=== PATIENT | male | born 1970 | race Hispanic/Latino ===

== ENCOUNTER 2018-12-15 09:36 | Emergency (ER) | payer BC ==
[~2018-12-15] VITALS: Ht 162.6 cm; Wt 65.8 kg
--- OUTSIDE RECORDS SUMMARY | 2018-12-15 09:39 | XMS REPORT | Clinical Summary ---
Author Author [facility] Address Unknown Phone Unavailable Care Team Providers Care Aspnet Developer Name Role Phone Andrei Orellana PCP Allergies Comments Active Allergy Reactions Severity Noted Date Penicillins Hives 08/25/2017 Medications End Date Status Medication Sig Dispensed Refills Start Date Active tamsulosin (FLOMAX) 0.4 Take 1 15 capsule 0 mg Cp24 24 hr capsule capsule (0.4 8 mg total) by mouth daily. Active Problems Not on file Social History Date Tobacco Use Types Packs/Day Years Used Never Smoker Smokeless Tobacco: Never Used Alcohol Use Drinks/Week oz/Week Comments No Sex Assigned at Date Recorded Not on file Industry Job Start Date Occupation Not on file Not on file Not on file Travel End Travel History Travel Start No recent travel history available. Last Filed Vital Signs Not on file Plan of Treatment Not on file Results Not on fileafter 12/14/2017 Insurance Payer Benefit Subscriber ID Type Phone Address Plan / Group BLUE [employer] BCBS PPO xxxxxxxxxxxx PPO [phone] [address] [place] [address] CHOICE
--- OUTSIDE RECORDS SUMMARY | 2018-12-15 09:39 | XMS REPORT ---
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 Allergies, Adverse Reactions, Alerts This patient has no known allergies or adverse reactions. Medications This patient has no known medications. Results Test Description Test Time Test Comments Text Results Atomic Results Result Comments CT, ABDOMEN 2017-08-26 00:52:00 FINAL REPORT CLINICAL HISTORY: Acute abdominal pain FINDINGS: Multiple axial images of the abdomen and pelvis were performed without intravenous contrast. Oral contrast was not g iven. This exam was performed according to our departmental dose-optimization program, which includes automated exposure control, adjustment of the mA and/or kV according to patient size and/or use of the iterative reconstruction technique. Comparison:None. Lower chest: Clear lungs. No pleural effusion or pneumothorax. Visualized cardiac contours normal. Liver: No significant findings. Gallbladder and biliary tree: No significant findings. Spleen: No significant findings. Adrenal Glands: No significant findings. Kidneys and ureters: Punctate nonobstructing stone in the superior left kidney. No ureteral stone or CT evidence of obstructive uropathy. Stomach and Duodenum: No significant findings. Pancreas: No significant findings. Bowel: No significant findings. Appendix: Normal. Bladder: 4 mm stone in the dependent urinary bladder. Major vascular structures: No significant findings. Reproductive organs: No significant findings. Other: No free air, fluid or adenopathy Skeleton: No acute bony abnormality. IMPRESSION: 4 mm urinary bladder stone may reflect a recently passed kidney stone. There is no noncontrast CT evidence of obstructive uropathy. Punctate nonobstructing left kidney stone. Signed: [place] Young Verified Date/Time: 08/26/2017 00:52:05 Reading Location: [address] Reading Room C METABOLIC PANEL 2017-08-25 21:36:00 SODIUM (BEAKER) (test uwsl=101) 139 meq/L 136-145 POTASSIUM (BEAKER) (test fwem=120) 4.6 meq/L 3.5-5.1 CHLORIDE (BEAKER) (test ehuw=615) 108 meq/L 98-107 CO2 (BEAKER) (test ufpf=262) 23 meq/L 22-29 BLOOD UREA NITROGEN (BEAKER) (test fhdn=459) 11 mg/dL 7-21 CREATININE (BEAKER) (test obig=044) 0.83 mg/dL 0.57-1.25 GLUCOSE RANDOM (BEAKER) (test fzdw=105) 91 mg/dL 70-105 CALCIUM (BEAKER) (test amtv=650) 10.3 mg/dL 8.4-10.2 EGFR (BEAKER) (test mvqz=8051) mL/min/1.73 sq m INSUFFICIENT CLINICAL DATA TO CALCULATE ESTIMATED GFR. [id number] 21:33:00* Test Item Value Reference Range Comments PHOSPHORUS (BEAKER) (test ueef=271) 3.4 mg/dL 2.3-4.7 [id number] 21:33:00* Test Item Value Reference Range Comments MAGNESIUM (BEAKER) (test lvoj=930) 2.1 mg/dL 1.6-2.6 URINALYSIS W/ [id number] 21:22:00* Test Item Value Reference Range Comments COLOR (BEAKER) (test rpqq=743) Light Yellow CLARITY (BEAKER) (test mhzz=643) Clear SPECIFIC GRAVITY UA (BEAKER) (test zfwj=089) 1.006 1.001-1.035 PH UA (BEAKER) (test hfgx=296) 6.0 5.0-8.0 PROTEIN UA (BEAKER) (test hegb=314) Negative Negative GLUCOSE UA (BEAKER) (test qyhz=223) Negative Negative KETONES UA (BEAKER) (test jnfr=114) Negative Negative BILIRUBIN UA (BEAKER) (test yeyj=280) Negative Negative BLOOD UA (BEAKER) (test vrnl=197) Large Negative NITRITE UA (BEAKER) (test fosk=081) Negative Negative LEUKOCYTE ESTERASE UA (BEAKER) (test rhod=110) Negative Negative UROBILINOGEN UA (BEAKER) (test ptmm=053) 0.2 mg/dL 0.2-1.0 RBC UA (BEAKER) (test srzp=042) 169 /HPF WBC UA (BEAKER) (test jzxr=698) 10 /HPF BACTERIA (BEAKER) (test ihxl=168) Few MUCUS (BEAKER) (test mwti=7391) Occasional SOURCE(BEAKER) (test grmk=2358) Urine, Clean Catch CBC W/PLT COUNT & AUTO [id number] 20:51:00* Test Item Value Reference Range Comments WHITE BLOOD CELL COUNT (BEAKER) (test zbja=196) 8.8 K/ L 3.5-10.5 RED BLOOD CELL COUNT (BEAKER) (test uhyj=150) 4.72 M/ L 4.63-6.08 HEMOGLOBIN (BEAKER) (test pixf=829) 14.1 GM/DL 13.7-17.5 HEMATOCRIT (BEAKER) (test cgjb=482) 42.4 % 40.1-51.0 MEAN CORPUSCULAR VOLUME (BEAKER) (test zzlg=799) 89.8 fL 79.0-92.2 MEAN CORPUSCULAR HEMOGLOBIN (BEAKER) (test olpn=847) 29.9 pg 25.7-32.2 MEAN CORPUSCULAR HEMOGLOBIN CONC (BEAKER) (test fkrh=787) 33.3 GM/DL 32.3-36.5 RED CELL DISTRIBUTION WIDTH (BEAKER) (test qoks=673) 13.3 % 11.6-14.4 PLATELET COUNT (BEAKER) (test xixe=015) 198 K/CU MM 150-450 MEAN PLATELET VOLUME (BEAKER) (test mcvm=844) 11.2 fL 9.4-12.4 NUCLEATED RED BLOOD CELLS (BEAKER) (test yzqd=170) 0 /100 WBC 0-0 NEUTROPHILS RELATIVE PERCENT (BEAKER) (test injz=498) 62 % LYMPHOCYTES RELATIVE PERCENT (BEAKER) (test tdmr=021) 30 % MONOCYTES RELATIVE PERCENT (BEAKER) (test uzph=756) 8 % EOSINOPHILS RELATIVE PERCENT (BEAKER) (test guqu=956) 1 % BASOPHILS RELATIVE PERCENT (BEAKER) (test gner=896) 0 % NEUTROPHILS ABSOLUTE COUNT (BEAKER) (test otnt=982) 5.42 K/ L 1.78-5.38 LYMPHOCYTES ABSOLUTE COUNT (BEAKER) (test nrvi=921) 2.58 K/ L 1.32-3.57 MONOCYTES ABSOLUTE COUNT (BEAKER) (test bjkb=924) 0.66 K/ L 0.30-0.82 EOSINOPHILS ABSOLUTE COUNT (BEAKER) (test mnmj=643) 0.05 K/ L 0.04-0.54 BASOPHILS ABSOLUTE COUNT (BEAKER) (test ljcv=575) 0.02 K/ L 0.01-0.08 IMMATURE GRANULOCYTES-RELATIVE PERCENT (BEAKER) (test viil=8128) 0 % 0-1
[2018-12-15] MEDS ORDERED: SODIUM CHLORIDE 0.9% 1000ML 1,000 ML IV SCH ×2 (10:15)
[2018-12-15] MEDS ORDERED: KETOROLAC TROMETHAMINE 30 MG/ML VIAL IV ONE (10:30)
[2018-12-15] MEDS ORDERED: SODIUM CHLORIDE 0.9% 1000ML 1,000 ML IV ONE (10:30)
[2018-12-15] MEDS ORDERED: ONDANSETRON HCL INJ 2MG/ML 2ML 2 MG/ML VIAL IV ONE (10:30)
[2018-12-15 10:45] LABS: BASOPHILS % 0.3 % (0.0-1.0); EOSINOPHILS # (AUTO) 0.1 (0.0-0.4); EOSINOPHILS % 0.8 % (0.0-6.0); HEMATOCRIT 40.8 % (38.2-49.6); HEMOGLOBIN 13.8 g/dL (14.0-18.0); LYMPHOCYTES # (AUTO) 2.4 (1.0-3.2); LYMPHOCYTES % 37.7 % (18.0-39.1); MEAN CORPUSCULAR HEMOGLOBIN 29.7 pg (28-32); MEAN CORPUSCULAR HGB CONC 33.8 g/dL (31-35); MEAN CORPUSCULAR VOLUME 87.9 fL (81-99); MONOCYTES # (AUTO) 0.5 (0.2-0.8); MONOCYTES % 7.5 % (4.4-11.3); NEUTROPHILS # (AUTO) 3.4 (2.1-6.9); NEUTROPHILS % 53.4 % (38.7-80.0); PLATELET COUNT 204 x10e3/uL (140-360); RED BLOOD COUNT 4.64 x10e6/uL (4.3-5.7); RED CELL DISTRIBUTION WIDTH 13.7 % (11.7-14.4)
[2018-12-15 10:49] LABS: CLARITY,URINE CLOUDY (CLEAR); COLOR,URINE YELLOW (YELLOW)
[2018-12-15 10:49] LABS: ALANINE AMINOTRANSFERASE 22 IU/L (0-55); ALBUMIN 3.9 g/dL (3.5-5.0); ALKALINE PHOSPHATASE 94 IU/L (40-150); ANION GAP 13.6 mmol/L (8-16); BLOOD UREA NITROGEN 10 mg/dL (7-26); BUN/CREATININE RATIO 9 (6-25); CALCIUM 9.5 mg/dL (8.4-10.2); CARBON DIOXIDE 24 mmol/L (22-29); CHLORIDE 104 mmol/L (98-107); CREATININE, SERUM 1.16 mg/dL (0.72-1.25); EST GLOMERULAR FILTRATION RATE > 60 ML/MIN (60-); GLUCOSE 98 mg/dL (74-118); POTASSIUM 3.6 mmol/L (3.5-5.1); SODIUM 138 mmol/L (136-145)
[2018-12-15 10:50] LABS: BILIRUBIN,URINE NEGATIVE (NEGATIVE); KETONES,URINE NEGATIVE (NEGATIVE); LEUKOCYTE ESTERASE ,URINE NEGATIVE (NEGATIVE); NITRITE,URINE NEGATIVE (NEGATIVE); PROTEIN,URINE DIPSTICK TRACE (NEGATIVE); URINE UROBILINOGEN 0.2 mg/dL (0.2 - 1)
[2018-12-15 11:00] LABS: BACTERIA,URINE MODERATE /HPF; EPITHELIAL CELLS,URINE MODERATE /LPF; RBC,URINE >50 /HPF (0-5)
--- NOTE | 2018-12-15 11:16 | Diagnostic Imaging Report ---
EXAM: CT Abdomen and Pelvis WITHOUT contrast INDICATION: ^STONE PROTOCOL ^[id number] ^1030 ^Y COMPARISON: CT abdomen pelvis report from 10/12/2015 TECHNIQUE: Abdomen and pelvis were scanned utilizing a multidetector helical scanner from the lung base to the pubic symphysis without administration of IV contrast. Absence of intravenous contrast decreases sensitivity for detection of focal lesions and vascular pathology. Coronal and sagittal reformations were obtained. Routine protocol was performed. IV CONTRAST: None. ORAL CONTRAST: Water RADIATION DOSE: Total DLP: 299 mGy*cm Estimated effective dose: (DLP x 0.015 x size factor) mSv COMPLICATIONS: None FINDINGS: LINES and TUBES: None. LOWER THORAX: Unremarkable HEPATOBILIARY: No focal hepatic lesions. No biliary ductal dilation. GALLBLADDER: No radio-opaque stones or sludge. No wall thickening. SPLEEN: No splenomegaly. PANCREAS: No focal masses or ductal dilatation. ADRENALS: No adrenal nodules KIDNEYS/URETERS: No hydronephrosis. No cystic or solid mass lesions. 3 mm nonobstructing calcified stone in the distal right ureter on series 3, image 124 at the level of L5 vertebral body, may represent migration of the previously noted right proximal ureteral stone or US stone. Mild right perinephric fat stranding without hydronephrosis. No additional calcified stones in the kidneys or left ureter. GI TRACT: No abnormal distention, wall thickening, or evidence of bowel obstruction. Appendix is normal. PELVIC ORGANS/BLADDER: Unremarkable. LYMPH NODES: No lymphadenopathy. VESSELS: Unremarkable. PERITONEUM / RETROPERITONEUM: No free air or fluid. BONES: Unremarkable. SOFT TISSUES: Unremarkable. IMPRESSION: Nonobstructing 3 mm right distal ureteral stone, 4.3 cm above the ureteral pelvic junction. Signed by: Dr. Jamilah Concepcion M.D. on 12/15/2018 11:13 AM
[2018-12-15] MEDS ORDERED: ULTRAM50 MG PO (11:25)
[2018-12-15] MEDS ORDERED: FLOMAX0.4 MG PO (11:25)
[2018-12-15] MEDS ORDERED: ZOFRAN4 MG SL (11:25)
[2018-12-15 11:43] VITALS: BP 146/90
== END 2018-12-15 12:03 | disposition home or self-care (01) ==
LOC: ER 09:36
DX: M54.5 Low back pain (principal); R10.9 Unspecified abdominal pain; R11.0 Nausea; N20.1 Calculus of ureter
CPT/HCPCS: 36415; 74176; 80053; 81001; 85025; 99284; J1885; J2405; J7030